=== PATIENT | female | born 1970 | race Hispanic/Latino ===

== ENCOUNTER 2021-06-01 17:34 | Emergency (ER) | payer SELFPAY ==
[2021-06-01] MEDS ORDERED: MIDAZOLAM 2 MG/2 ML INJ IV ONE (17:59)
[2021-06-01] MEDS ORDERED: METOCLOPRAMIDE 10 MG/2 ML INJ IV ONE (17:59)
[2021-06-01] MEDS ORDERED: ACETAMINOPHEN 325 MG TAB PO ONE (17:59)
[2021-06-01] MEDS ORDERED: LACTATED RINGERS 1,000 ML IV ONE (17:59)
[2021-06-01] MEDS ORDERED: KETOROLAC 30 MG/1 ML INJ IV ONE (17:59)
[2021-06-01] MEDS ORDERED: diphenhydrAMINE 50 MG/ML VIAL IV ONE (18:01)
--- NOTE | 2021-06-01 18:01 | Emergency Department Report ---
<CAROLINA ISAAC - Last Filed: 06/01/21 23:10> ED General Adult HPI - General Chief complaint: Chest Pain Stated complaint: SOB/CHILLS/HEADACHE Time Seen by Provider: 06/01/21 17:49 - Related Data Previous Rx's Medication Instructions Recorded Last Taken Type Acetaminophen [Non-Aspirin Extra 500 mg PO Q6HR PRN #30 tablet 06/01/21 Unknown Rx Strength] Ibuprofen [Motrin] 400 mg PO Q6HR PRN #30 tablet 06/01/21 Unknown Rx Loperamide [Imodium] 2 mg PO Q2HR PRN #30 capsule 06/01/21 Unknown Rx Metoclopramide [Reglan] 10 mg PO QID PRN #30 tablet 06/01/21 Unknown Rx Allergies Allergy/AdvReac Type Severity Reaction Status Date / Time Penicillins Allergy Swelling Verified 06/01/21 17:38 ED Past Medical Hx - Medications Home Medications: Home Medications Medication Instructions Recorded Confirmed Last Taken Type Acetaminophen [Non-Aspirin Extra 500 mg PO Q6HR PRN #30 tablet 06/01/21 Unknown Rx Strength] Ibuprofen [Motrin] 400 mg PO Q6HR PRN #30 tablet 06/01/21 Unknown Rx Loperamide [Imodium] 2 mg PO Q2HR PRN #30 capsule 06/01/21 Unknown Rx Metoclopramide [Reglan] 10 mg PO QID PRN #30 tablet 06/01/21 Unknown Rx ED Course - Reevaluation(s) Reevaluation #2: 06/01/21 23:[address] Greco. This is a 50-year-old female here with URI symptoms. IV fluids are ongoing and urinalysis is pending. On repeat assessment at 11 PM, the patient is resting calmly in the bed. She reports that she feels much better. Her heart rate is improved to less than 100. Urinalysis shows no evidence of infection. The patient states she is ready to be discharged home. She was encouraged to return to the emergency department in any time should she develop significantly worsening symptoms or new health concerns. She was advised to self isolate until she is able to take a Covid test. 06/01/21 23:10 ED Medical Decision Making - Lab Data Result diagrams: 06/01/21 18:14 06/01/21 18:14 ED Disposition Clinical Impression: Suspected COVID-19 virus infection, Dehydration, Hypomagnesemia, Body mass index greater than 40, History of diarrhea Disposition: 01 HOME / SELF CARE / HOMELESS Condition: Good Instructions: COVID-19 Frequently Asked Questions, COVID-19, Upper Respiratory Infection, Adult Additional Instructions: As we discussed, the patient most likely has novel coronavirus/COVID. the symptoms of COVID will typically persist 10 to 14 days. There is no cure at this time for COVID. Please make certain to self isolate and self quarantine, follow-up with an outpatient primary care doctor within the next 3 to 5 days, wash hands with soap and water frequently, thoroughly and often, patient may take the prescribed medications as needed and directed. Advance diet and drink plenty of fluids as tolerated. Avoid interactions with the very elderly, very young, and those with chronic medical conditions. Return to the emergency room right away with new pain, worsening pain, migration of pain, projectile vomiting, change in mental status, confusion, inability to tolerate liquid feeds, new, worsened or different symptoms not present on the initial emergency room evaluation. Patient may consume foods that are high in magnesium and potassium [id number], such as banana, avocado, or potato. Recommend physical activity, exercise and weight loss as tolerated. Prescriptions: Loperamide [Imodium] 2 mg PO Q2HR PRN #30 capsule PRN Reason: Diarrhea Ibuprofen [Motrin] 400 mg PO Q6HR PRN #30 tablet PRN Reason: Pain , Severe (7-10) Acetaminophen [Non-Aspirin Extra Strength] 500 mg PO Q6HR PRN #30 tablet PRN Reason: Pain , Severe (7-10) Metoclopramide [Reglan] 10 mg PO QID PRN #30 tablet PRN Reason: Nausea Referrals: [facility] [Provider Group] - 3-5 Days [facility] [Provider Group] - 3-5 Days [facility] [Outside] - 3-5 Days Forms: Work/School Release Form(ED) <NAIN GRECO - Last Filed: 06/02/21 12:24> ED General Adult HPI - General PUI?: Yes Source: patient, RN notes reviewed Mode of arrival: Ambulatory Limitations: No Limitations - History of Present Illness Initial comments: The patient was evaluated in the emergency department for symptoms described in the history of present illness. He/she was evaluated in the context of the global COVID-19 pandemic, which necessitated consideration that the patient might be at risk for infection with the virus that causes COVID-19. Institutional protocols and algorithms that pertain to the evaluation of patients at risk for COVID-19 are in a state of rapid change based on information released by regulatory bodies including the CDC and federal and state organizations. These policies and algorithms were followed during the p mary kate's care in the emergency department. Please note that these policies, procedures and recommendations changed on a rapid basis. This patient is a 50-year-old female who is COVID-19 vaccinated but does not have booster, with a history of body mass index 48.9, and cholecystectomy, who presents to the ER with a complaint of chest tightness, cough, shortness of breath, decreased appetite, nausea, headache, myalgias, fatigue, diarrhea, decreased energy level. Symptoms present for about 2 days. She reports that she has not taken antibiotics recently. She reports that she has decreased appetite but does not have loss of taste or smell per se. Has not taken anything [id number]. Symptoms constant. They worsen when she attempts to eat or drink. Denies urinary symptoms. Headache is occipital and bitemporal. The headache is not sudden or thunderclap in nature. The headache is not maximal in intensity. -: Gradual, days(s) Location: head, chest, back, right, upper extremity, lower extremity Quality: aching Consistency: constant Improves with: rest Worsens with: movement ED Review of Systems ROS: Stated complaint: SOB/CHILLS/HEADACHE Other details as noted in HPI Constitutional: chills, malaise, weakness Eyes: denies: eye discharge ENT: congestion Respiratory: cough Cardiovascular: chest pain Gastrointestinal: nausea, diarrhea. denies: vomiting Musculoskeletal: back pain, arthralgia, myalgia Neurological: headache, weakness Psychiatric: anxiety ED Past Medical Hx - Past Medical History Additional medical history: BRAIN BLEED 10 YRS AGO - Surgical History Hx Cholecystectomy: Yes ED Physical Exam - General Limitations: No Limitations General appearance: alert, anxious, obese - Head Head exam: Present: atraumatic, normocephalic - Eye Eye exam: Present: normal appearance, EOMI. Absent: nystagmus - ENT ENT exam: Present: normal exam, normal orophraynx, mucous membranes moist, normal external ear exam - Neck Neck exam: Present: normal inspection, full ROM. Absent: tenderness, meningismus - Respiratory Respiratory exam: Present: normal lung sounds bilaterally, decreased breath sounds. Absent: respiratory distress, wheezes, rales, rhonchi, stridor - Cardiovascular Cardiovascular Exam: Present: normal rhythm, tachycardia, normal heart sounds. Absent: bradycardia, irregular rhythm, systolic murmur, diastolic murmur, rubs, gallop - GI/Abdominal GI/Abdominal exam: Present: soft. Absent: distended, tenderness, guarding, rebound, rigid, pulsatile mass - Extremities Exam Extremities exam: Present: normal inspection, full ROM, pedal edema (1+ edema in the bilateral lower extremity), other (2+ pulses noted in the bilateral upper and lower extremities. There is no palpable cord. negative Homans sign. Muscular compartments are soft. The pelvis is stable.). Absent: calf tenderness - Back Exam Back exam: Present: normal inspection, full ROM. Absent: tenderness, CVA tenderness (R), CVA tenderness (L), paraspinal tenderness, vertebral tenderness - Neurological Exam Neurological exam: Present: alert, oriented X3, normal gait, other (No facial dr oop. Tongue midline. Extraocular movements intact bilaterally. Facial sensation intact to light touch in V1, V2, V3 distribution bilaterally. 5 and a 5 strength in 4 extremities. Sensation intact to light touch in 4 extremities.). Absent: motor sensory deficit - Psychiatric Psychiatric exam: Present: anxious - Skin Skin exam: Present: warm, dry, intact, normal color. Absent: rash ED Course Vital Signs 06/01/21 06/01/21 06/01/21 17:41 19:46 22:51 Temperature 98.5 F 97.8 F Pulse Rate 119 H 99 H Respiratory 22 14 16 Rate Blood Pressure 179/97 Blood Pressure 139/61 [Right] O2 Sat by Pulse 98 100 Oximetry - Reevaluation(s) Reevaluation #1: 06/01/21 18:08 Differential diagnosis, including the not limited to: COVID-19, pneumonia, urinary tract infection, viral syndrome, influenza Assessment and plan: 50-year-old female presenting during the COVID-19 pandemic, with multiple constitutional symptoms consistent with Covid, including diarrhea, myalgias, fatigue, headache, and decreased appetite. Abdomen is soft and benign, without rebound, guarding or peritoneal signs. She is not en cephalopathic or meningitic, and has a GCS of 15. Patient counseled on natural history of COVID-19 and influenza. Given that this patient is already having nausea, diarrhea, and decreased appetite, would not initiate Tamiflu therapy given that she is already symptomatic from presumed viral illness. I do suspect that this is COVID-19. Check appropriate laboratory studies, urinalysis, x-ray of the chest, treat symptoms, and reassess after initial data points 06/01/21 19:59 Laboratory studies reviewed and appreciated. Patient feeling improved. Urinalysis pending. Chest x-ray unremarkable. Labs significant for mild hypomagnesemia, dehydration, otherwise unremarkable. Care was transferred to the oncoming ER physician to follow-up on urinalysis, and repeat vital signs after initial intervention. Anticipate discharge deven tachycardia improved. Discussed this with the patient. She articulated understanding. ED Medical Decision Making - Lab Data Result diagrams: 06/01/21 18:14 06/01/21 18:14 Vital Signs 06/01/21 17:41 Temperature 98.5 F Pulse Rate 119 H Respiratory 22 Rate Blood Pressure 179/97 O2 Sat by Pulse 98 Oximetry Lab Results 06/01/21 06/01/21 06/01/21 Range/Units 18:14 18:14 18:14 WBC 11.4 H (4.5-11.0) K/mm3 RBC 5.07 H (3.65-5.03) M/mm3 Hgb 14.2 (10.1-14.3) gm/dl Hct 44.3 H (30.3-42.9) % MCV 87 (79-97) fl MCH 28 (28-32) pg MCHC 32 (30-34) % RDW 13.2 (13.2-15.2) % Plt Count 198 (140-440) K/mm3 PT 14.5 (12.2-14.9) Sec. INR 1.02 (0.87-1.13) Sodium 132 L (137-145) mmol/L Potassium 4.3 (3.6-5.0) mmol/L Chloride 96.7 L (98-107) mmol/L Carbon Dioxide 21 L (22-30) mmol/L Anion Gap 19 mmol/L BUN 15 (7-17) mg/dL Creatinine 0.6 (0.6-1.2) mg/dL Estimated GFR > 60 ml/min BUN/Creatinine Ratio 25 % Glucose 204 H (65-100) mg/dL Calcium 9.1 (8.4-10.2) mg/dL Magnesium 1.60 L (1.7-2.3) mg/dL Total Bilirubin 0.70 (0.1-1.2) mg/dL AST 20 (5-40) units/L ALT 17 (7-56) units/L Alkaline Phosphatase 103 (35-129) units/L Total Creatine Kinase 163 H (30-135) units/L Total Protein 8.1 (6.3-8.2) g/dL Albumin 4.3 (3.9-5) g/dL Albumin/Globulin Ratio 1.1 % - EKG Data -: EKG Interpreted by Me EKG shows normal: sinus rhythm Rate: tachycardia - EKG Data 06/01/21 18:07 The EKG is interpreted at 17: 59 Sinus rhythm, tachycardia, rate 112 bpm. Left axis deviation, left anterior fascicular block, normal P wave axis. QTC 4 6 0 ms. Abnormal EKG. Not a STEMI. There is no prior for comparison. - Radiology Data Radiology results: pending, report reviewed, image reviewed CHEST 2 VIEWS INDICATION / CLINICAL INFORMATION: chest tightness covid symptoms . COMPARISON: None available. FINDINGS: SUPPORT DEVICES: None. HEART / MEDIASTINUM: No significant abnormality. LUNGS / PLEURA: No significant pulmonary or pleural abnormality. No pneumothorax. ADDITIONAL FINDINGS: No significant additional findings. IMPRESSION: 1. No acute findings. Signer Na me: Chapis Soares MD Signed: 06/01/2021 6:07 PM Workstation Name: [id number] Critical care attestation.: If time is entered above; I have spent that time in minutes in the direct care of this critically ill patient, excluding procedure time. ED Disposition Is pt being admited?: No Does the pt Need Aspirin: No
[2021-06-01 18:31] LABS: Hematocrit 44.3 % (30.3-42.9); Hemoglobin 14.2 gm/dl (10.1-14.3); Mean Corpuscular HGB Conc 32 % (30-34); Mean Corpuscular Volume 87 fl (79-97); Platelet Count 198 K/mm3 (140-440); Red Blood Count 5.07 M/mm3 (3.65-5.03); Red Cell Distribution Width 13.2 % (13.2-15.2)
[2021-06-01 18:54] LABS: Alanine Aminotransferase 17 units/L (7-56); Albumin 4.3 g/dL (3.9-5); Blood Urea Nitrogen 15 mg/dL (7-17); Calcium 9.1 mg/dL (8.4-10.2); Hemolysis Index 8
[2021-06-01 18:57] LABS: INR 1.02 (0.87-1.13)
[2021-06-01 19:03] LABS: BUN/Creatinine Ratio 25
[2021-06-01] MEDS ORDERED: MAGNESIUM OXIDE 400 MG TAB PO STA (19:09)
--- NOTE | 2021-06-01 19:11 | XRay Report ---
CHEST 2 VIEWS INDICATION / CLINICAL INFORMATION: chest tightness covid symptoms. COMPARISON: None available. FINDINGS: SUPPORT DEVICES: None. HEART / MEDIASTINUM: No significant abnormality. LUNGS / PLEURA: No significant pulmonary or pleural abnormality. No pneumothorax. ADDITIONAL FINDINGS: No significant additional findings. IMPRESSION: 1. No acute findings. Signer Name: Chapis Soares MD Signed: 06/01/2021 7:07 PM Workstation Name: [id number]
[2021-06-01] MEDS ORDERED: SODIUM CHLORIDE 0.9% 1000 ML 1,000 ML IV ONE (19:56)
[2021-06-01 20:08] LABS: Bilirubin,Urine NEG (Negative); Blood,Urine NEG (Negative); Color,Urine Yellow (Yellow); RBC,Urine < 1.0 /HPF (0.0-6.0); Urobilinogen,Urine < 2.0 mg/dL (<2.0)
[2021-06-01 22:52] VITALS: BP 139/61
[2021-06-02 00:31] LABS: Anisocytosis 1+; Basophils % (Manual) 0 % (0.0-1.8); Platelet Estimate Consistent w Auto; Total Cells Counted 100
--- NOTE | 2021-06-02 14:37 | Electrocardiograph Report ---
[facility] Test Date: 2021-06-01 Test Time: 17:59:03 Pat Name: ANDRIA DUVALL Department: Room: Gender: F Linux Systems Engineer: CINDI : 1970 Requested By: NAIN GRECO Order Number: [id number] Reading MD: Yuan Sevilla Measurements Intervals [place] Rate: 112 P: 45 AK: 160 QRS: -70 QRSD: 98 T: 40 QT: 338 QTc: 460 Interpretive Statements Sinus tachycardia Inferior infarct, old No previous ECG available for comparison Electronically Signed On 06-02-2021 14:36:41 EST by Yuan Sevilla
== END 2021-06-01 23:45 | disposition home or self-care (01) ==
LOC: ED 17:34
DX: E86.0 Dehydration (principal); Z20.822 Contact with and (suspected) exposure to COVID-19; E83.42 Hypomagnesemia; Z68.41 Body mass index [BMI] 40.0-44.9, adult; R19.7 Diarrhea, unspecified; Z88.0 Allergy status to penicillin; Z90.49 Acquired absence of other specified parts of digestive tract
CPT/HCPCS: 36415; 71046; 80053; 81001; 82550; 83735; 84443; 84484; 85007; 85025; 85610; 93005; 93010; 96361; 96374; 96375; 99284; J1200; J1885; J2765; J7030; J7120; Q0162

== ENCOUNTER 2022-01-15 13:36 | Emergency (ER) | payer SELFPAY ==
[2022-01-15] MEDS ORDERED: ONDANSETRON 4 MG ODT TAB PO ONE (23:16)
[2022-01-15] MEDS ORDERED: ONDANSETRON 4 MG/2 ML INJ IV ONE (23:18)
[2022-01-15] MEDS ORDERED: SODIUM CHLORIDE 0.9% 1000 ML 1,000 ML IV ONE (23:18)
--- NOTE | 2022-01-16 02:01 | Emergency Department Report ---
ED General Adult HPI - General Chief complaint: Nausea/Vomiting/Diarrhea Stated complaint: body aches,diarrhea,nausea,headache,sob Time Seen by Provider: 01/15/22 23:22 Source: patient Mode of arrival: Ambulatory Limitations: No Limitations - History of Present Illness Initial comments: Patient 51-year-old female who presents for nausea vomiting diarrhea times 3 days. There has been no fevers no chills no suspicious food intake. Patient is COVID vaccinated. 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 Patient states fever of 101.4 at home is resolved with Tylenol p.o. Associated body aches patient denies productive cough. There is no shortness of breath no wheezing no history of asthma. Patient is tolerating p.o. intake at this time. Severity scale (0 -10): 0 - Related Data Previous Rx's Medication Instructions Recorded Last Taken Type Acetaminophen [Non-Aspirin Extra 500 mg PO Q6HR PRN #30 tablet 01/16/22 Unknown Rx Strength] Ibuprofen [Motrin 400 MG tab] 400 mg PO Q6HR PRN #30 tablet 01/16/22 Unknown Rx Loperamide [Imodium] 2 mg PO Q2HR PRN #30 capsule 01/16/22 Unknown Rx Metoclopramide [Reglan TAB] 10 mg PO QID PRN #30 tablet 01/16/22 Unknown Rx Allergies Allergy/AdvReac Type Severity Reaction Status Date / Time Penicillins Allergy Swelling Verified 01/15/22 14:33 ED Review of Systems ROS: Stated complaint: body aches,diarrhea,nausea,headache,sob Other details as noted in HPI Constitutional: malaise. denies: chills, fever Eyes: denies: eye pain, eye discharge, vision change ENT: congestion. denies: ear pain, throat pain Respiratory: denies: cough, shortness of breath, wheezing Cardiovascular: denies: chest pain, palpitations Endocrine: no symptoms reported Gastrointestinal: nausea, vomiting, diarrhea. denies: constipation, hematemesis, melena, hematochezia Genitourinary: denies: urgency, dysuria, discharge Musculoskeletal: denies: back pain, joint swelling, arthralgia Skin: denies: rash, lesions Neurological: denies: headache, weakness, paresthesias, vertigo Psychiatric: denies: anxiety, depression Hematological/Lymphatic: as per HPI ED Past Medical Hx - Past Medical History Additional medical history: BRAIN BLEED 10 YRS AGO - Surgical History Hx Cholecystectomy: Yes - Medications Home Medications: Home Medications Medication Instructions Recorded Confirmed Last Taken Type Acetaminophen [Non-Aspirin Extra 500 mg PO Q6HR PRN #30 tablet 01/16/22 Unknown Rx Strength] Ibuprofen [Motrin 400 MG tab] 400 mg PO Q6HR PRN #30 tablet 01/16/22 Unknown Rx Loperamide [Imodium] 2 mg PO Q2HR PRN #30 capsule 01/16/22 Unknown Rx Metoclopramide [Reglan TAB] 10 mg PO QID PRN #30 tablet 01/16/22 Unknown Rx ED Physical Exam - General Limitations: No Limitations General appearance: alert, in no apparent distress - Head Head exam: Present: normocephalic, normal inspection - Eye Eye exam: Present: PERRL, EOMI Pupils: Present: normal accommodation - ENT ENT exam: Present: normal orophraynx, mucous membranes moist - Neck Neck exam: Present: normal inspection, full ROM. Absent: tenderness, lymphadenopathy - Respiratory Respiratory exam: Present: normal lung sounds bilaterally. Absent: respiratory distress, wheezes, stridor, chest wall tenderness - Cardiovascular Cardiovascular Exam: Present: regular rate, normal rhythm, normal heart sounds. Absent: systolic murmur, diastolic murmur, rubs, gallop - GI/Abdominal GI/Abdominal exam: Present: normal bowel sounds, other (Obese). Absent: soft, distended, tenderness - Rectal Rectal exam: Present: deferred - Extremities Exam Extremities exam: Present: normal inspection, full ROM, normal capillary refill. Absent: tenderness - Back Exam Back exam: Present: normal inspection, full ROM. Absent: CVA tenderness (R), CVA tenderness (L) - Neurological Exam Neurological exam: Present: alert, oriented X3, CN II-XII intact, normal gait, reflexes normal. Absent: motor sensory deficit - Expanded Neurological Exam Expanded Patient oriented to: Present: person, place, time Speech: Present: fluid speech Motor strength exam: RUE: 5, LUE: 5, RLE: 5, LLE: 5 Best Eye Response ([place]): (4) open spontaneously Best Motor Response ([place]): (6) obeys commands Best Verbal Response ([place]): (5) oriented Francesca Total: 15 - Psychiatric Psychiatric exam: Present: normal affect, normal mood - Skin Skin exam: Present: warm, dry, intact, normal color. Absent: rash ED Course Vital Signs 01/15/22 14:28 Temperature 98.1 F Pulse Rate 98 H Respiratory 20 Rate Blood Pressure 173/87 [Right] O2 Sat by Pulse 100 Oximetry ED Medical Decision Making - Medical Decision Making Symptoms improved, patient tolerating p.o. intake, plan DC to home with prescriptions. Continue to hydrate. Follow-up with your primary care doctor in 2 to 3 days. Patient verbalized agreement and understanding of discharge plan. Patient DC'd home in stable condition at this time. Critical care attestation.: If time is entered above; I have spent that time in minutes in the direct care of this critically ill patient, excluding procedure time. ED Disposition Clinical Impression: Viral illness, Nausea vomiting and diarrhea Disposition: HOME / SELF CARE / HOMELESS Is pt being admited?: No Does the pt Need Aspirin: No Condition: Stable Instructions: Nausea and Vomiting, Adult, [id number], Food Choices to Help Relieve Diarrhea, Adult, Viral Illness, Adult Additional Instructions: Take medications as prescribed, hydrate as directed. Follow-up with your primary care doctor in 2 to 3 days. Return to emergency department should symptoms worsen Prescriptions: Loperamide [Imodium] 2 mg PO Q2HR PRN #30 capsule PRN Reason: Diarrhea Ibuprofen [Motrin 400 MG tab] 400 mg PO Q6HR PRN #30 tablet PRN Reason: Pain , Severe (7-10) Acetaminophen [Non-Aspirin Extra Strength] 500 mg PO Q6HR PRN #30 tablet PRN Reason: Pain , Severe (7-10) Metoclopramide [Reglan TAB] 10 mg PO QID PRN #30 tablet PRN Reason: Nausea Referrals: MONTSE MILLARD MD [Staff Physician] - 3-5 Days Forms: Work/School Release Form(ED) Time of Disposition: 02:05
[2022-01-16 02:17] VITALS: BP 158/83
== END 2022-01-16 02:17 | disposition home or self-care (01) ==
LOC: ED 13:36
DX: B34.9 Viral infection, unspecified (principal); R11.2 Nausea with vomiting, unspecified; R19.7 Diarrhea, unspecified; Z90.49 Acquired absence of other specified parts of digestive tract; Z88.0 Allergy status to penicillin
CPT/HCPCS: 96361; 96374; 99282; J2405; J7030; J3490; Q0162